=== PATIENT | female | born 1960 ===

== ENCOUNTER 2018-10-09 10:18 | Observation (INO) | payer MEDICAID, OTHER ==
[2018-10-09 11:16] VITALS: BMI 25.2
[2018-10-09] MEDS ORDERED: Lidocaine 2% MPF (5 ml) Inj ONE (13:29)
[2018-10-09] MEDS ORDERED: Verapamil 2 ML ONE (13:29)
[2018-10-09] MEDS ORDERED: Nitroglycerin 50mg in D5W 50 MG/250 ML BOTTLE IV ONE (13:30)
[2018-10-09] MEDS ORDERED: Iohexol 350mg/ml 100 ML ONE (13:31)
[2018-10-09] MEDS ORDERED: Midazolam 2 MG/2 ML VIAL ONE (13:42)
[2018-10-09] MEDS ORDERED: Sodium Chloride 0.9% 1,000 ML IV SCH ×2 (15:15)
[2018-10-09 20:08] VITALS: RESP 20
--- NOTE | 2018-10-09 21:02 | CARDCATH ---
PROCEDURE DATE: 10/09/2018 INDICATIONS: Ms. Celeste Carrillo is a 58-year-old female who presented to [facility] with recurrent episode of AFib with RVR. The patient subsequently had recurrent episodes of substernal chest pain, for which she was transferred over. She had a stress test back in 05/2018, which was inconclusive secondary to submaximal and therefore was taken directly to the laboratory manager for further evaluation and treatment. PROCEDURE PERFORMED: Left heart catheterization with selective left and right coronary angiogram via left distal radial arterial approach, 6-[place] left distal radial arterial access, wrist band for hemostasis. TECHNIQUES OF PROCEDURE: After obtaining informed consent, the patient was brought to the cardiac cath suite in post-absorptive and non-sedative state. The patient was prepped and draped in the usual sterile fashion. Lidocaine 2% was used for infiltration of anesthesia. Using modified Seldinger technique, a 6-[place] sheath was introduced into left distal radial arterial access. Subsequently over a J-wire, JL4 and JR4 diagnostic catheters were used to engage the left and right coronary systems. Angiograms were obtained in different orthogonal views. Subsequently, LV gram was obtained in the KATZ view. HEMODYNAMIC FINDINGS: Left ventricular end-diastolic pressure was . There was no gradient noted upon the aortic valve pullback. There was no AI and no MR. Left ventricular ejection fraction is estimated to be 60% to 65%. CORONARY ANATOMY: Left main is a large sized vessel, bifurcates into LAD and left circumflex coronary artery. Left circumflex is a large sized vessel, runs in the AV groove, gives off obtuse marginal branch with minimal luminal irregularities. LAD is a large sized vessel, gives off two large sized diagonal branches with mild luminal irregularities, free of any obstructive disease. Left anterior descending artery has proximal and mid distal 0%. Diagonal 1 has proximal and mid distal 0%. Left circumflex has proximal and mid distal 0%. Obtuse marginal has proximal and mid distal 0%. RCA is a large sized vessel, proximal tandem 65% luminal narrowing noted secondary to vasospasm with free of any atherosclerotic disease. RCA proximal has two tandem 65% stenosis, mid 0, distal 0. IMPRESSION: Vasospastic right coronary artery disease. RECOMMENDATIONS: The patient can be transferred back to [place]. Keep the patient on calcium channel blockers along with beta blockers to rate control for atrial fibrillation along with vasospastic right coronary artery disease. Continue the patient on oral anticoagulation. The patient can be discharged home . Santo Dejesus MD
[2018-10-10 07:04] LABS: BASO # 0.1 K/uL (0.0-0.2); BASO % 0.7 % (0.0-2.0); EOS # 0.2 K/uL (0.0-0.7); EOS % 2.5 % (0.0-4.0); HEMOGLOBIN 13.9 g/dL (11.0-16.0); LYMPH # 1.8 K/uL (1.0-4.3); LYMPH % 22.2 % (20.0-40.0); MEAN CELL VOLUME 86.3 fL (81.0-99.0); MEAN CORPUSCULAR HEMOGLOBIN 29.5 pg (27.0-31.0); MEAN CORPUSCULAR HGB CONC 34.2 g/dL (33.0-37.0); MEAN PLATELET VOLUME 9.4 fL (7.2-11.7); MONO # 0.8 K/uL (0.0-0.8); MONO % 9.9 % (0.0-10.0); NEUT # 5.2 K/uL (1.8-7.0); NEUT % 64.7 % (50.0-75.0); RBC 4.72 Mil/uL (3.80-5.20)
[2018-10-10 07:15] LABS: ALB/GLOB RATIO 1.2 (1.0-2.1); ALT/SGPT 28 U/L (9-52); AST/SGOT 24 U/L (14-36); BLOOD UREA NITROGEN 23 mg/dL (7-17); CALCIUM 8.9 mg/dl (8.6-10.4); GFR NON-AFRICAN AMERICAN > 60
[2018-10-10] MEDS ORDERED: Metoprolol Succinate 25 mg XL Tab PO SCH (10:00)
[2018-10-10 14:28] VITALS: PULSE 78
[2018-10-10 16:17] VITALS: BP 105/70; TEMP 98.3; O2SAT 98
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
== END 2018-10-10 17:32 | disposition short-term general hospital (02) ==
LOC: C.CATHLAB 10:18 → UNDOFXSDCRRACCOM 17:28 → C.CATHLAB 17:28 → C.6T 17:28 → UNDOFXSDCSVC 20:43 → C.6T 20:43 → UNDOFXSDCACCOM 20:43 → UNDOFXSDCRRACCOM 20:43
PROVIDERS: ADMIT Hospitalist; ATTEND Hospitalist
DX: I48.91 Unspecified atrial fibrillation (principal); R07.9 Chest pain, unspecified; I25.111 Atherosclerotic heart disease of native coronary artery with angina pectoris with documented spasm; I10 Essential (primary) hypertension
CPT/HCPCS: 36415; 80053; 85025; 93458; 94770; 99152; 99153; C1769; C1887; C1894; G0378; J1644; J2001; J2250; J3010; J7030; Q9967